=== PATIENT | male | born 1945 | race Caucasian/White ===

== ENCOUNTER 2020-02-23 12:08 | Inpatient (IN) | payer OTHER ==
[~2020-02-23] VITALS: Ht 170.2 cm; Wt 69.0 kg
[2020-02-23] MEDS ORDERED: LISI-662 PO (13:18)
[2020-02-23] MEDS ORDERED: HYDR-1475 PO (13:18)
[2020-02-23 14:18] LABS: BASOPHILS % (AUTO) 0.3 % (0.0-2.0); EOSINOPHILS % (AUTO) 0.3 % (1.0-6.0); HEMATOCRIT 38.8 % (41-53); HEMOGLOBIN 12.9 g/dL (13.5-17.5); LYMPHOCYTES % (AUTO) 8.3 % (22.0-44.0); MEAN CORPUSCULAR HEMOGLOBIN 29.6 pg (26.0-34.0); MEAN CORPUSCULAR HGB CONC 33.3 G/dL (31.0-37.0); MEAN CORPUSCULAR VOLUME 89 fL (80-100); MONOCYTES # (AUTO) 0.9 K/uL (0.1-1.0); MONOCYTES % (AUTO) 7.5 % (2.0-9.0); NEUTROPHILS # (AUTO) 9.9 K/uL (1.8-7.7); NEUTROPHILS % (AUTO) 83.6 % (40.0-70.0); PLATELET COUNT (AUTO) 480 K/uL (150-450); RED BLOOD CELL COUNT(AUTO) 4.38 MIL/uL (4.50-5.90); RED CELL DISTRIBUTION WIDTH 13.4 % (11.5-14.5)
[2020-02-23] MEDS ORDERED: CefTRIAXone 1 GM/DEXTROSE 50 ML IV ONE (14:30)
[2020-02-23] MEDS ORDERED: DEXAMETHASONE SOD PHOS 4 MG/ML VIAL IVP ONE (14:30)
[2020-02-23] MEDS ORDERED: AZITHROMYCIN 500 MG/NS 250 ML IV ONE (14:30)
[2020-02-23 14:32] LABS: CALCIUM, TOTAL 8.3 mg/dL (8.8-10.5); CREATININE 1.34 mg/dL (0.60-1.30); POTASSIUM 3.7 mmol/L (3.5-5.1)
[2020-02-23 14:39] LABS: ALBUMIN 2.2 g/dL (3.4-5.0); BILIRUBIN,TOTAL 1.1 mg/dL (0.1-1.0); TOTAL PROTEIN, SERUM 7.6 g/dL (6.4-8.2)
[2020-02-23 14:41] LABS: D-DIMER 20.77 mg/L FEU (0.00-0.50); INR 1.2 (0.9-1.1); PROTHROMBIN TIME 12.2 SEC (9.4-11.6)
[2020-02-23] MEDS ORDERED: SODIUM CHLORIDE 0.9% 100 ML ONE (15:14)
[2020-02-23] MEDS ORDERED: IOVERSOL 350 MG/ML 100 ML VIAL ONE (15:14)
[2020-02-23 15:15] LABS: COVID AG,FIA SOURCE NASOPHARYNGEAL
[2020-02-23 16:03] LABS: INFLUENZA TYPE A NEGATIVE FOR TYPE A (NEGATIVE); INFLUENZA TYPE B NEGATIVE FOR TYPE B (NEGATIVE)
[2020-02-23] MEDS ORDERED: HEPARIN SODIUM 25000 UNITS/D5W 250 ML IV PRN (17:00)
[2020-02-23] MEDS ORDERED: HEPARIN SODIUM,PORCINE 5,000 UNITS/ML VIAL IVP PRN ×3 (17:00→22:30)
[2020-02-23] MEDS ORDERED: ONDANSETRON HCL 4 MG/2 ML VIAL IVP PRN ×2 (17:15→22:30)
[2020-02-23] MEDS ORDERED: 0.9% SODIUM CHLORIDE 10 ML SYRINGE IVP PRN (17:15)
[2020-02-23] MEDS ORDERED: ACETAMINOPHEN 325 MG TABLET PO PRN (17:15)
[2020-02-23 18:03] LABS: APPEARANCE,URINE CLEAR (CLEAR); BILIRUBIN,URINE NEGATIVE (NEGATIVE); GLUCOSE, URINE (UA) NEGATIVE (NEGATIVE); KETONES,URINE NEGATIVE (NEGATIVE); LEUKOCYTE ESTERASE ,URINE NEGATIVE (NEGATIVE); NITRATE,URINE NEGATIVE (NEGATIVE); OCCULT BLOOD,URINE NEGATIVE (NEGATIVE); PROTEIN,URINE POS 1+ (NEGATIVE)
[2020-02-23] MEDS: HEPARIN SODIUM,PORCINE 5,000 UNITS/ML VIAL IVP PRN ×2 (18:10→18:13)
[2020-02-23 18:14] LABS: BACTERIA,URINE None Seen /HPF (None Seen); RBC,URINE None Seen /HPF (0-2); SQUAMOUS EPITHELIAL CELL,UR Few /LPF (None Seen); WBC,URINE 0-2 /HPF (0-5)
[2020-02-23] MEDS ORDERED: HEPARIN SODIUM,PORCINE 5,000 UNITS/ML VIAL IVP ONE (22:30)
[2020-02-23] MEDS ORDERED: BISACODYL 10 MG RECTAL RECTAL SUPPOSITORY PR PRN (22:30)
[2020-02-23 23:45] LABS: D-DIMER 19.49 mg/L FEU (0.00-0.50); INR 1.2 (0.9-1.1); PROTHROMBIN TIME 12.4 SEC (9.4-11.6)
[2020-02-24] MEDS ORDERED: HEPARIN SODIUM,PORCINE 5,000 UNITS/ML VIAL SQ SCH
[2020-02-24 05:36] LABS: BASOPHILS % (AUTO) 0.2 % (0.0-2.0); EOSINOPHILS % (AUTO) 0.1 % (1.0-6.0); HEMATOCRIT 38.8 % (41-53); HEMOGLOBIN 13.1 g/dL (13.5-17.5); LYMPHOCYTES # (AUTO) 0.9 K/uL (1.0-4.8); LYMPHOCYTES % (AUTO) 10.8 % (22.0-44.0); MEAN CORPUSCULAR HEMOGLOBIN 29.9 pg (26.0-34.0); MEAN CORPUSCULAR HGB CONC 33.9 G/dL (31.0-37.0); MEAN CORPUSCULAR VOLUME 88 fL (80-100); MONOCYTES # (AUTO) 0.5 K/uL (0.1-1.0); MONOCYTES % (AUTO) 5.6 % (2.0-9.0); NEUTROPHILS # (AUTO) 7.1 K/uL (1.8-7.7); NEUTROPHILS % (AUTO) 83.3 % (40.0-70.0); PLATELET COUNT (AUTO) 486 K/uL (150-450); RED CELL DISTRIBUTION WIDTH 13.5 % (11.5-14.5)
[2020-02-24 06:12] LABS: D-DIMER 12.89 mg/L FEU (0.00-0.50)
[2020-02-24 06:33] LABS: ALBUMIN 1.9 g/dL (3.4-5.0); BILIRUBIN,TOTAL 0.6 mg/dL (0.1-1.0); C-REACTIVE PROTEIN QUANT 18.75 mg/dL (0.00-0.30); CREATININE 1.36 mg/dL (0.60-1.30); POTASSIUM 3.7 mmol/L (3.5-5.1); TOTAL PROTEIN, SERUM 7.1 g/dL (6.4-8.2)
[2020-02-24] MEDS: DOCUSATE SODIUM 100 MG CAPSULE PO SCH ×2 (09:00→21:00)
[2020-02-24] MEDS ORDERED: SODIUM CHLORIDE 0.9% 500 ML IV ONE (15:00)
[2020-02-24] MEDS: CefTRIAXone 1 GM/DEXTROSE 50 ML IV SCH (15:12)
[2020-02-24] MEDS: AZITHROMYCIN 500 MG/NS 250 ML IV SCH (16:09)
[2020-02-24 19:00] VITALS: BP 122/64
[2020-02-24 20:51] VITALS: BP 131/75
[2020-02-24] MEDS: HEPARIN SODIUM 25000 UNITS/D5W 250 ML IV PRN (21:14)
[2020-02-25 00:56] VITALS: BP 138/86
[2020-02-25 05:24] VITALS: BP 147/99
[2020-02-25] MEDS: HEPARIN SODIUM 25000 UNITS/D5W 250 ML IV PRN (06:54)
[2020-02-25 06:58] LABS: C-REACTIVE PROTEIN QUANT 9.68 mg/dL (0.00-0.30)
[2020-02-25 07:07] LABS: D-DIMER 6.83 mg/L FEU (0.00-0.50)
[2020-02-25 08:01] VITALS: BP 147/95
[2020-02-25 08:26] LABS: HIV 1-2 SCREEN 4TH GEN W/RFLX Non Reactive (Non Reactive)
[2020-02-25] MEDS: LISINOPRIL 20 MG TABLET PO SCH (08:30)
[2020-02-25] MEDS: DOCUSATE SODIUM 100 MG CAPSULE PO SCH ×2 (08:30→20:48)
[2020-02-25 11:33] VITALS: BP 132/88
[2020-02-25] MEDS: CefTRIAXone 1 GM/DEXTROSE 50 ML IV SCH (15:15)
[2020-02-25 16:13] VITALS: BP 128/82
[2020-02-25] MEDS: AZITHROMYCIN 500 MG/NS 250 ML IV SCH (16:16)
[2020-02-25] MEDS ORDERED: DEXAMETHASONE 4 MG TABLET PO ONE (17:00)
[2020-02-25 20:40] VITALS: BP 143/99
[2020-02-25] MEDS: APIXABAN 5 MG TABLET PO SCH (20:47)
[2020-02-25] MEDS: ZINC SULFATE 220 MG CAPSULE PO SCH (20:48)
[2020-02-25] MEDS: ASCORBIC ACID 500 MG TABLET PO SCH (20:48)
[2020-02-26 01:20] VITALS: BP 153/95
[2020-02-26 04:53] VITALS: BP 134/89
[2020-02-26] MEDS: MAGNESIUM HYDROXIDE SUSPENSION 30 ML UDCUP PO PRN (05:15)
[2020-02-26 07:29] LABS: D-DIMER 6.01 mg/L FEU (0.00-0.50)
[2020-02-26 07:57] LABS: C-REACTIVE PROTEIN QUANT 13.31 mg/dL (0.00-0.30)
[2020-02-26 07:59] VITALS: BP 149/95
[2020-02-26] MEDS: DOCUSATE SODIUM 100 MG CAPSULE PO SCH ×2 (08:57→21:41)
[2020-02-26] MEDS: ASCORBIC ACID 500 MG TABLET PO SCH ×2 (08:57→21:41)
[2020-02-26] MEDS: ZINC SULFATE 220 MG CAPSULE PO SCH ×2 (08:57→21:41)
[2020-02-26] MEDS: DEXAMETHASONE 4 MG TABLET PO SCH (08:57)
[2020-02-26] MEDS: APIXABAN 5 MG TABLET PO SCH ×2 (08:57→21:41)
[2020-02-26] MEDS: LISINOPRIL 20 MG TABLET PO SCH (08:57)
[2020-02-26 11:58] VITALS: BP 132/82
[2020-02-26 14:58] VITALS: BP 136/76
[2020-02-26] MEDS: CefTRIAXone 1 GM/DEXTROSE 50 ML IV SCH (16:08)
[2020-02-26] MEDS: AZITHROMYCIN 500 MG/NS 250 ML IV SCH (17:08)
[2020-02-26] MEDS: ACETAMINOPHEN 325 MG TABLET PO PRN (23:59)
[2020-02-26] MEDS: ZOLPIDEM TARTRATE 5 MG TABLET PO PRN (23:59)
[2020-02-27] VITALS: BP 122/80
[2020-02-27 04:00] VITALS: BP 164/74
[2020-02-27 07:55] VITALS: BP 155/90
[2020-02-27] MEDS: LISINOPRIL 20 MG TABLET PO SCH (08:12)
[2020-02-27] MEDS: DOCUSATE SODIUM 100 MG CAPSULE PO SCH ×2 (08:12→21:00)
[2020-02-27] MEDS: APIXABAN 5 MG TABLET PO SCH ×2 (08:12→21:00)
[2020-02-27] MEDS: ASCORBIC ACID 500 MG TABLET PO SCH ×2 (08:13→21:00)
[2020-02-27] MEDS: ZINC SULFATE 220 MG CAPSULE PO SCH ×2 (08:13→21:00)
[2020-02-27 08:46] LABS: D-DIMER 5.82 mg/L FEU (0.00-0.50)
[2020-02-27 09:20] LABS: C-REACTIVE PROTEIN QUANT 5.94 mg/dL (0.00-0.30)
[2020-02-27] MEDS: DEXAMETHASONE 4 MG TABLET PO SCH (09:56)
[2020-02-27 11:31] VITALS: BP 159/111
[2020-02-27 15:28] VITALS: BP 164/99
[2020-02-27] MEDS ORDERED: SODIUM CHLORIDE 0.9% 100 ML ONE (16:02)
[2020-02-27] MEDS: CefTRIAXone 1 GM/DEXTROSE 50 ML IV SCH (16:12)
[2020-02-27] MEDS: AZITHROMYCIN 500 MG/NS 250 ML IV SCH (16:59)
[2020-02-27] MEDS: TraMADol HCL 50 MG TABLET PO PRN (17:52)
[2020-02-28 00:33] VITALS: BP 165/103
[2020-02-28] MEDS: ZOLPIDEM TARTRATE 5 MG TABLET PO PRN (00:36)
[2020-02-28 05:43] VITALS: BP 164/119
[2020-02-28 05:52] LABS: ORGANISM ID Not indicated.; S PNEUMO SOURCE Urine; STREP PNEUMONIAE AG URINE Negative (Negative); STREP.PNEUMO BODY FLUID CULT. Not indicated.
[2020-02-28 06:37] LABS: BASOPHILS % (AUTO) 0.1 % (0.0-2.0); EOSINOPHILS % (AUTO) 1.1 % (1.0-6.0); HEMATOCRIT 38.3 % (41-53); HEMOGLOBIN 12.4 g/dL (13.5-17.5); LYMPHOCYTES # (AUTO) 1.8 K/uL (1.0-4.8); MEAN CORPUSCULAR HGB CONC 32.5 G/dL (31.0-37.0); MEAN CORPUSCULAR VOLUME 89 fL (80-100); MONOCYTES # (AUTO) 1.4 K/uL (0.1-1.0); MONOCYTES % (AUTO) 9.4 % (2.0-9.0); NEUTROPHILS # (AUTO) 11.3 K/uL (1.8-7.7); NEUTROPHILS % (AUTO) 77.4 % (40.0-70.0); PLATELET COUNT (AUTO) 649 K/uL (150-450); RED BLOOD CELL COUNT(AUTO) 4.29 MIL/uL (4.50-5.90); RED CELL DISTRIBUTION WIDTH 13.5 % (11.5-14.5)
[2020-02-28 07:12] LABS: ALBUMIN 2.3 g/dL (3.4-5.0); BILIRUBIN,TOTAL 0.5 mg/dL (0.1-1.0); CALCIUM, TOTAL 7.3 mg/dL (8.8-10.5); CREATININE 1.33 mg/dL (0.60-1.30); POTASSIUM 3.7 mmol/L (3.5-5.1); TOTAL PROTEIN, SERUM 6.9 g/dL (6.4-8.2)
[2020-02-28 08:11] VITALS: BP 152/99
[2020-02-28] MEDS: ZINC SULFATE 220 MG CAPSULE PO SCH ×2 (09:00→22:13)
[2020-02-28] MEDS: APIXABAN 5 MG TABLET PO SCH ×2 (09:00→22:12)
[2020-02-28] MEDS: LISINOPRIL 20 MG TABLET PO SCH (09:00)
[2020-02-28] MEDS: DOCUSATE SODIUM 100 MG CAPSULE PO SCH ×2 (09:00→22:12)
[2020-02-28] MEDS: ASCORBIC ACID 500 MG TABLET PO SCH ×2 (09:00→22:12)
[2020-02-28] MEDS: DEXAMETHASONE 4 MG TABLET PO SCH (09:00)
[2020-02-28 12:26] VITALS: BP 154/90
[2020-02-28] MEDS ORDERED: METOPROLOL TARTRATE 25 MG TABLET PO ONE (12:45)
[2020-02-28] MEDS ORDERED: SODIUM CHLORIDE 0.9% 1,000 ML ONE (16:30)
[2020-02-28] MEDS: CefTRIAXone 1 GM/DEXTROSE 50 ML IV SCH (16:55)
[2020-02-28] MEDS: AZITHROMYCIN 500 MG/NS 250 ML IV SCH (17:59)
[2020-02-28 20:28] VITALS: BP 141/85
[2020-02-28] MEDS: METOPROLOL TARTRATE 25 MG TABLET PO SCH (22:12)
[2020-02-28 23:51] VITALS: BP 149/111
[2020-02-29] MEDS ORDERED: LORazepam 2 MG/ML VIAL IM ONE (00:15)
[2020-02-29 08:36] VITALS: BP 149/90
[2020-02-29] MEDS: ZINC SULFATE 220 MG CAPSULE PO SCH ×2 (10:20→20:55)
[2020-02-29] MEDS: APIXABAN 5 MG TABLET PO SCH ×2 (10:20→20:55)
[2020-02-29] MEDS: ASCORBIC ACID 500 MG TABLET PO SCH ×2 (10:20→20:55)
[2020-02-29] MEDS: DEXAMETHASONE 4 MG TABLET PO SCH (10:20)
[2020-02-29] MEDS: METOPROLOL TARTRATE 25 MG TABLET PO SCH ×2 (10:20→20:55)
[2020-02-29] MEDS: LISINOPRIL 20 MG TABLET PO SCH (10:20)
[2020-02-29] MEDS: DOCUSATE SODIUM 100 MG CAPSULE PO SCH ×2 (10:21→20:55)
[2020-02-29 12:37] LABS: BASOPHILS % (AUTO) 0.5 % (0.0-2.0); EOSINOPHILS % (AUTO) 0.5 % (1.0-6.0); HEMATOCRIT 37.5 % (41-53); HEMOGLOBIN 11.9 g/dL (13.5-17.5); LYMPHOCYTES # (AUTO) 2.3 K/uL (1.0-4.8); LYMPHOCYTES % (AUTO) 15.5 % (22.0-44.0); MEAN CORPUSCULAR HEMOGLOBIN 28.8 pg (26.0-34.0); MEAN CORPUSCULAR HGB CONC 31.8 G/dL (31.0-37.0); MEAN CORPUSCULAR VOLUME 90 fL (80-100); MONOCYTES # (AUTO) 1.4 K/uL (0.1-1.0); MONOCYTES % (AUTO) 9.5 % (2.0-9.0); NEUTROPHILS # (AUTO) 11.2 K/uL (1.8-7.7); PLATELET COUNT (AUTO) 644 K/uL (150-450); RED BLOOD CELL COUNT(AUTO) 4.15 MIL/uL (4.50-5.90)
[2020-02-29 12:43] LABS: CREATININE 1.27 mg/dL (0.60-1.30); POTASSIUM 4.2 mmol/L (3.5-5.1)
[2020-02-29 12:45] LABS: LEGIONELLA PNEUMO AG URINE Negative (Negative)
[2020-02-29 12:49] LABS: ALBUMIN 2.1 g/dL (3.4-5.0); BILIRUBIN,TOTAL 0.4 mg/dL (0.1-1.0); TOTAL PROTEIN, SERUM 6.3 g/dL (6.4-8.2)
[2020-02-29] MEDS: AZITHROMYCIN 500 MG TABLET PO SCH (14:35)
[2020-02-29] MEDS: LIDOCAINE/PF 1% 2 ML VIAL IM SCH (14:35)
[2020-02-29] MEDS: CefTRIAXone SODIUM 1 GM/VIAL IM SCH (14:35)
[2020-02-29 19:29] VITALS: BP 147/91
[2020-02-29] MEDS: ZOLPIDEM TARTRATE 5 MG TABLET PO PRN (20:57)
[2020-03-01 05:14] VITALS: BP 174/97
[2020-03-01] MEDS: APIXABAN 5 MG TABLET PO SCH ×3 (08:51→22:27)
[2020-03-01] MEDS: AZITHROMYCIN 500 MG TABLET PO SCH ×2 (08:51→09:00)
[2020-03-01] MEDS: DEXAMETHASONE 4 MG TABLET PO SCH ×2 (08:52→09:00)
[2020-03-01] MEDS: DOCUSATE SODIUM 100 MG CAPSULE PO SCH ×2 (08:52→22:27)
[2020-03-01] MEDS: ZINC SULFATE 220 MG CAPSULE PO SCH ×3 (08:52→22:28)
[2020-03-01] MEDS: TraMADol HCL 50 MG TABLET PO PRN (08:52)
[2020-03-01] MEDS: METOPROLOL TARTRATE 25 MG TABLET PO SCH ×3 (08:53→22:28)
[2020-03-01] MEDS: LISINOPRIL 20 MG TABLET PO SCH ×2 (08:53→09:00)
[2020-03-01] MEDS: ASCORBIC ACID 500 MG TABLET PO SCH ×3 (08:53→22:28)
[2020-03-01] MEDS: CefTRIAXone SODIUM 1 GM/VIAL IM SCH (09:00)
[2020-03-01] MEDS: LIDOCAINE/PF 1% 2 ML VIAL IM SCH (09:00)
[2020-03-01] MEDS: ZOLPIDEM TARTRATE 5 MG TABLET PO PRN (22:28)
[2020-03-01 23:13] VITALS: BP 145/106
[2020-03-02 04:10] VITALS: BP 144/99
[2020-03-02 07:53] VITALS: BP 129/83
[2020-03-02] MEDS: LISINOPRIL 20 MG TABLET PO SCH (09:00)
[2020-03-02] MEDS: CefTRIAXone SODIUM 1 GM/VIAL IM SCH (09:00)
[2020-03-02] MEDS: ASCORBIC ACID 500 MG TABLET PO SCH ×2 (09:00→20:28)
[2020-03-02] MEDS: AZITHROMYCIN 500 MG TABLET PO SCH (09:00)
[2020-03-02] MEDS: METOPROLOL TARTRATE 25 MG TABLET PO SCH ×2 (09:00→20:28)
[2020-03-02] MEDS: ZINC SULFATE 220 MG CAPSULE PO SCH ×2 (09:00→20:29)
[2020-03-02] MEDS: DOCUSATE SODIUM 100 MG CAPSULE PO SCH ×2 (09:00→20:27)
[2020-03-02] MEDS: APIXABAN 5 MG TABLET PO SCH ×2 (09:00→20:28)
[2020-03-02] MEDS: DEXAMETHASONE 4 MG TABLET PO SCH (09:00)
[2020-03-02] MEDS: LIDOCAINE/PF 1% 2 ML VIAL IM SCH (09:00)
[2020-03-02 20:33] VITALS: BP 155/96
[2020-03-03 08:18] VITALS: BP 148/86
[2020-03-03] MEDS: LIDOCAINE/PF 1% 2 ML VIAL IM SCH (09:00)
[2020-03-03] MEDS: DEXAMETHASONE 4 MG TABLET PO SCH (09:00)
[2020-03-03] MEDS: LISINOPRIL 20 MG TABLET PO SCH (09:00)
[2020-03-03] MEDS: APIXABAN 5 MG TABLET PO SCH (09:00)
[2020-03-03] MEDS: AZITHROMYCIN 500 MG TABLET PO SCH (09:00)
[2020-03-03] MEDS: DOCUSATE SODIUM 100 MG CAPSULE PO SCH (09:00)
[2020-03-03] MEDS: ASCORBIC ACID 500 MG TABLET PO SCH (09:00)
[2020-03-03] MEDS: CefTRIAXone SODIUM 1 GM/VIAL IM SCH (09:00)
[2020-03-03] MEDS: METOPROLOL TARTRATE 25 MG TABLET PO SCH (09:00)
[2020-03-03] MEDS: ZINC SULFATE 220 MG CAPSULE PO SCH (09:00)
[2020-03-03 10:29] LABS: BASOPHILS % (AUTO) 0.2 % (0.0-2.0); EOSINOPHILS % (AUTO) 2.5 % (1.0-6.0); HEMOGLOBIN 14.4 g/dL (13.5-17.5); LYMPHOCYTES % (AUTO) 21.1 % (22.0-44.0); MEAN CORPUSCULAR VOLUME 91 fL (80-100); MONOCYTES # (AUTO) 1.3 K/uL (0.1-1.0); MONOCYTES % (AUTO) 8.8 % (2.0-9.0); NEUTROPHILS # (AUTO) 9.6 K/uL (1.8-7.7); NEUTROPHILS % (AUTO) 67.4 % (40.0-70.0); PLATELET COUNT (AUTO) 680 K/uL (150-450); RED BLOOD CELL COUNT(AUTO) 4.96 MIL/uL (4.50-5.90); RED CELL DISTRIBUTION WIDTH 13.8 % (11.5-14.5)
[2020-03-03 10:57] LABS: ALBUMIN 2.7 g/dL (3.4-5.0); BILIRUBIN,TOTAL 0.6 mg/dL (0.1-1.0); CALCIUM, TOTAL 8.3 mg/dL (8.8-10.5); CREATININE 1.41 mg/dL (0.60-1.30); POTASSIUM 5.1 mmol/L (3.5-5.1)
[2020-03-03 23:47] VITALS: BP 157/96
[2020-03-04 06:45] LABS: BASOPHILS % (AUTO) 1.3 % (0.0-2.0); EOSINOPHILS % (AUTO) 1.9 % (1.0-6.0); HEMATOCRIT 41.5 % (41-53); HEMOGLOBIN 13.9 g/dL (13.5-17.5); LYMPHOCYTES # (AUTO) 2.7 K/uL (1.0-4.8); LYMPHOCYTES % (AUTO) 20.1 % (22.0-44.0); MEAN CORPUSCULAR HEMOGLOBIN 29.9 pg (26.0-34.0); MEAN CORPUSCULAR HGB CONC 33.4 G/dL (31.0-37.0); MEAN CORPUSCULAR VOLUME 89 fL (80-100); MONOCYTES # (AUTO) 1.1 K/uL (0.1-1.0); MONOCYTES % (AUTO) 8.5 % (2.0-9.0); NEUTROPHILS % (AUTO) 68.2 % (40.0-70.0); PLATELET COUNT (AUTO) 597 K/uL (150-450); RED BLOOD CELL COUNT(AUTO) 4.64 MIL/uL (4.50-5.90); RED CELL DISTRIBUTION WIDTH 13.9 % (11.5-14.5)
[2020-03-04 07:24] LABS: ALBUMIN 2.6 g/dL (3.4-5.0); BILIRUBIN,TOTAL 0.6 mg/dL (0.1-1.0); CALCIUM, TOTAL 7.9 mg/dL (8.8-10.5); CREATININE 1.24 mg/dL (0.60-1.30); POTASSIUM 4.3 mmol/L (3.5-5.1); TOTAL PROTEIN, SERUM 6.7 g/dL (6.4-8.2)
[2020-03-04 07:56] VITALS: BP 149/92
[2020-03-04] MEDS: ASCORBIC ACID 500 MG TABLET PO SCH ×2 (08:59→21:11)
[2020-03-04] MEDS: DOCUSATE SODIUM 100 MG CAPSULE PO SCH ×2 (08:59→21:11)
[2020-03-04] MEDS: METOPROLOL TARTRATE 25 MG TABLET PO SCH ×2 (08:59→21:11)
[2020-03-04] MEDS: AZITHROMYCIN 500 MG TABLET PO SCH (09:00)
[2020-03-04] MEDS: APIXABAN 5 MG TABLET PO SCH ×2 (09:00→21:11)
[2020-03-04] MEDS: DEXAMETHASONE 4 MG TABLET PO SCH (09:00)
[2020-03-04] MEDS: CefTRIAXone SODIUM 1 GM/VIAL IM SCH (09:00)
[2020-03-04] MEDS: ZINC SULFATE 220 MG CAPSULE PO SCH ×2 (09:00→21:24)
[2020-03-04] MEDS: LIDOCAINE/PF 1% 2 ML VIAL IM SCH (09:00)
[2020-03-04] MEDS: LISINOPRIL 20 MG TABLET PO SCH (09:00)
[2020-03-04 20:00] VITALS: BP 135/71
[2020-03-04] MEDS: MAGNESIUM HYDROXIDE SUSPENSION 30 ML UDCUP PO PRN (21:24)
[2020-03-05 08:29] VITALS: BP 142/93
[2020-03-05] MEDS: APIXABAN 5 MG TABLET PO SCH ×2 (08:51→20:54)
[2020-03-05] MEDS: LISINOPRIL 20 MG TABLET PO SCH (08:51)
[2020-03-05] MEDS: ASCORBIC ACID 500 MG TABLET PO SCH ×2 (08:51→20:54)
[2020-03-05] MEDS: AZITHROMYCIN 500 MG TABLET PO SCH (08:51)
[2020-03-05] MEDS: DOCUSATE SODIUM 100 MG CAPSULE PO SCH ×2 (08:51→20:54)
[2020-03-05] MEDS: ZINC SULFATE 220 MG CAPSULE PO SCH ×2 (08:51→20:54)
[2020-03-05] MEDS: DEXAMETHASONE 4 MG TABLET PO SCH (08:52)
[2020-03-05] MEDS: METOPROLOL TARTRATE 25 MG TABLET PO SCH ×2 (08:53→20:54)
[2020-03-05] MEDS: LIDOCAINE/PF 1% 2 ML VIAL IM SCH (09:00)
[2020-03-05] MEDS: CefTRIAXone SODIUM 1 GM/VIAL IM SCH (09:00)
[2020-03-05 20:30] VITALS: BP 122/77
[2020-03-06] MEDS: CALCIUM CARBONATE 500 MG CHEWABLE TABLET CHEW PRN (01:58)
[2020-03-06] MEDS: METOPROLOL TARTRATE 25 MG TABLET PO SCH ×2 (08:49→21:00)
[2020-03-06] MEDS: DOCUSATE SODIUM 100 MG CAPSULE PO SCH ×4 (08:49→21:00)
[2020-03-06] MEDS: APIXABAN 5 MG TABLET PO SCH ×3 (08:49→21:00)
[2020-03-06] MEDS: DEXAMETHASONE 4 MG TABLET PO SCH (08:49)
[2020-03-06] MEDS: ASCORBIC ACID 500 MG TABLET PO SCH ×3 (08:49→21:00)
[2020-03-06] MEDS: ZINC SULFATE 220 MG CAPSULE PO SCH ×3 (08:49→21:00)
[2020-03-06] MEDS: AZITHROMYCIN 500 MG TABLET PO SCH ×2 (08:49→09:00)
[2020-03-06] MEDS: LISINOPRIL 20 MG TABLET PO SCH ×2 (08:49→09:00)
[2020-03-06] MEDS: LIDOCAINE/PF 1% 2 ML VIAL IM SCH (08:50)
[2020-03-06] MEDS: CefTRIAXone SODIUM 1 GM/VIAL IM SCH (08:50)
[2020-03-06 20:23] VITALS: BP 108/82
[2020-03-07 05:16] VITALS: BP 122/72
[2020-03-07 07:25] LABS: BASOPHILS % (AUTO) 0.3 % (0.0-2.0); EOSINOPHILS % (AUTO) 0.4 % (1.0-6.0); HEMATOCRIT 43.9 % (41-53); HEMOGLOBIN 14.5 g/dL (13.5-17.5); LYMPHOCYTES # (AUTO) 3.1 K/uL (1.0-4.8); LYMPHOCYTES % (AUTO) 21.1 % (22.0-44.0); MEAN CORPUSCULAR HEMOGLOBIN 29.9 pg (26.0-34.0); MEAN CORPUSCULAR HGB CONC 33.1 G/dL (31.0-37.0); MEAN CORPUSCULAR VOLUME 90 fL (80-100); MONOCYTES # (AUTO) 1.2 K/uL (0.1-1.0); MONOCYTES % (AUTO) 8.1 % (2.0-9.0); NEUTROPHILS # (AUTO) 10.2 K/uL (1.8-7.7); NEUTROPHILS % (AUTO) 70.1 % (40.0-70.0); PLATELET COUNT (AUTO) 598 K/uL (150-450); RED BLOOD CELL COUNT(AUTO) 4.85 MIL/uL (4.50-5.90); RED CELL DISTRIBUTION WIDTH 14.2 % (11.5-14.5)
[2020-03-07 07:55] LABS: ALBUMIN 2.8 g/dL (3.4-5.0); BILIRUBIN,TOTAL 0.5 mg/dL (0.1-1.0); CALCIUM, TOTAL 8.4 mg/dL (8.8-10.5); CREATININE 1.46 mg/dL (0.60-1.30); POTASSIUM 4.5 mmol/L (3.5-5.1); TOTAL PROTEIN, SERUM 6.8 g/dL (6.4-8.2)
[2020-03-07 08:28] VITALS: BP 108/74
[2020-03-07] MEDS: AZITHROMYCIN 500 MG TABLET PO SCH (10:26)
[2020-03-07] MEDS: ASCORBIC ACID 500 MG TABLET PO SCH ×2 (10:27→20:18)
[2020-03-07] MEDS: DEXAMETHASONE 4 MG TABLET PO SCH (10:27)
[2020-03-07] MEDS: ZINC SULFATE 220 MG CAPSULE PO SCH ×2 (10:27→20:18)
[2020-03-07] MEDS: LISINOPRIL 20 MG TABLET PO SCH (10:27)
[2020-03-07] MEDS: APIXABAN 5 MG TABLET PO SCH ×2 (10:27→20:18)
[2020-03-07] MEDS: METOPROLOL TARTRATE 25 MG TABLET PO SCH ×2 (10:27→20:18)
[2020-03-07] MEDS: DOCUSATE SODIUM 100 MG CAPSULE PO SCH ×2 (10:27→20:18)
[2020-03-07] MEDS: LIDOCAINE/PF 1% 2 ML VIAL IM SCH (10:28)
[2020-03-07] MEDS: CefTRIAXone SODIUM 1 GM/VIAL IM SCH ×2 (10:28→10:55)
[2020-03-07 19:25] VITALS: BP 103/71
[2020-03-07] MEDS: CALCIUM CARBONATE 500 MG CHEWABLE TABLET CHEW PRN (22:09)
[2020-03-08 04:50] VITALS: BP 109/65
[2020-03-08 08:07] VITALS: BP 100/65
[2020-03-08] MEDS: APIXABAN 5 MG TABLET PO SCH ×2 (08:10→20:54)
[2020-03-08] MEDS: AZITHROMYCIN 500 MG TABLET PO SCH (08:10)
[2020-03-08] MEDS: ASCORBIC ACID 500 MG TABLET PO SCH ×2 (08:10→20:54)
[2020-03-08] MEDS: ZINC SULFATE 220 MG CAPSULE PO SCH ×2 (08:10→20:54)
[2020-03-08] MEDS: DEXAMETHASONE 4 MG TABLET PO SCH (08:10)
[2020-03-08] MEDS: DOCUSATE SODIUM 100 MG CAPSULE PO SCH ×2 (08:11→20:54)
[2020-03-08] MEDS: METOPROLOL TARTRATE 25 MG TABLET PO SCH ×2 (09:00→20:55)
[2020-03-08] MEDS: LISINOPRIL 20 MG TABLET PO SCH (09:00)
[2020-03-08] MEDS: LIDOCAINE/PF 1% 2 ML VIAL IM SCH (11:14)
[2020-03-08] MEDS: CefTRIAXone SODIUM 1 GM/VIAL IM SCH (11:14)
[2020-03-08] MEDS: TraMADol HCL 50 MG TABLET PO PRN (11:15)
[2020-03-08 21:20] VITALS: BP 145/70
[2020-03-09 05:57] VITALS: BP 108/62
[2020-03-09 08:20] VITALS: BP 123/79
[2020-03-09] MEDS: LIDOCAINE/PF 1% 2 ML VIAL IM SCH (08:57)
[2020-03-09] MEDS: CefTRIAXone SODIUM 1 GM/VIAL IM SCH (08:58)
[2020-03-09] MEDS: AZITHROMYCIN 500 MG TABLET PO SCH (08:58)
[2020-03-09] MEDS: ZINC SULFATE 220 MG CAPSULE PO SCH ×2 (08:58→20:41)
[2020-03-09] MEDS: DOCUSATE SODIUM 100 MG CAPSULE PO SCH ×2 (08:58→20:41)
[2020-03-09] MEDS: APIXABAN 5 MG TABLET PO SCH ×2 (08:59→20:41)
[2020-03-09] MEDS: DEXAMETHASONE 4 MG TABLET PO SCH (08:59)
[2020-03-09] MEDS: ASCORBIC ACID 500 MG TABLET PO SCH ×2 (08:59→20:41)
[2020-03-09] MEDS: LISINOPRIL 20 MG TABLET PO SCH (09:00)
[2020-03-09] MEDS: METOPROLOL TARTRATE 25 MG TABLET PO SCH ×2 (09:00→20:41)
[2020-03-09] MEDS: TraMADol HCL 50 MG TABLET PO PRN (20:41)
[2020-03-09 21:08] VITALS: BP 126/70
[2020-03-10 05:00] VITALS: BP 102/68
[2020-03-10] MEDS: CefTRIAXone SODIUM 1 GM/VIAL IM SCH (08:14)
[2020-03-10] MEDS: LIDOCAINE/PF 1% 2 ML VIAL IM SCH (08:14)
[2020-03-10] MEDS: APIXABAN 5 MG TABLET PO SCH ×2 (08:15→19:51)
[2020-03-10] MEDS: AZITHROMYCIN 500 MG TABLET PO SCH (08:16)
[2020-03-10] MEDS: DOCUSATE SODIUM 100 MG CAPSULE PO SCH ×2 (08:17→19:51)
[2020-03-10] MEDS: LISINOPRIL 20 MG TABLET PO SCH (08:17)
[2020-03-10] MEDS: ASCORBIC ACID 500 MG TABLET PO SCH ×2 (08:17→19:52)
[2020-03-10] MEDS: DEXAMETHASONE 4 MG TABLET PO SCH (08:17)
[2020-03-10] MEDS: ZINC SULFATE 220 MG CAPSULE PO SCH ×2 (08:17→19:52)
[2020-03-10] MEDS: METOPROLOL TARTRATE 25 MG TABLET PO SCH ×2 (08:18→20:02)
[2020-03-10 08:25] VITALS: BP 113/68
[2020-03-10] MEDS: ACETAMINOPHEN 325 MG TABLET PO PRN (19:52)
[2020-03-10] MEDS: CALCIUM CARBONATE 500 MG CHEWABLE TABLET CHEW PRN (19:52)
[2020-03-10 20:03] VITALS: BP 104/64
[2020-03-11 03:28] VITALS: BP 120/71
[2020-03-11 07:30] VITALS: BP 120/74
[2020-03-11] MEDS: METOPROLOL TARTRATE 25 MG TABLET PO SCH ×2 (09:00→20:59)
[2020-03-11] MEDS: AZITHROMYCIN 500 MG TABLET PO SCH (09:30)
[2020-03-11] MEDS: LIDOCAINE/PF 1% 2 ML VIAL IM SCH (09:31)
[2020-03-11] MEDS: ASCORBIC ACID 500 MG TABLET PO SCH ×2 (09:31→20:59)
[2020-03-11] MEDS: DEXAMETHASONE 4 MG TABLET PO SCH (09:31)
[2020-03-11] MEDS: DOCUSATE SODIUM 100 MG CAPSULE PO SCH ×2 (09:31→20:59)
[2020-03-11] MEDS: LISINOPRIL 20 MG TABLET PO SCH (09:32)
[2020-03-11] MEDS: APIXABAN 5 MG TABLET PO SCH ×2 (09:32→20:59)
[2020-03-11] MEDS: CefTRIAXone SODIUM 1 GM/VIAL IM SCH (09:33)
[2020-03-11] MEDS: ZINC SULFATE 220 MG CAPSULE PO SCH ×2 (09:35→20:59)
[2020-03-11] MEDS: CALCIUM CARBONATE 500 MG CHEWABLE TABLET CHEW PRN (15:54)
[2020-03-11 20:40] VITALS: BP 118/58
[2020-03-11] MEDS: TraMADol HCL 50 MG TABLET PO PRN (20:59)
[2020-03-12 00:04] LABS: QUANTIFERON, TB GOLD PLUS Positive (Negative)
[2020-03-12 04:02] VITALS: BP 105/62
[2020-03-12 08:16] VITALS: BP 119/72
[2020-03-12] MEDS: APIXABAN 5 MG TABLET PO SCH ×2 (09:00→09:21)
[2020-03-12] MEDS: ASCORBIC ACID 500 MG TABLET PO SCH ×2 (09:00→09:22)
[2020-03-12] MEDS: ZINC SULFATE 220 MG CAPSULE PO SCH ×2 (09:00→09:22)
[2020-03-12] MEDS: DOCUSATE SODIUM 100 MG CAPSULE PO SCH ×2 (09:00→09:22)
[2020-03-12] MEDS: LISINOPRIL 20 MG TABLET PO SCH ×2 (09:00→09:22)
[2020-03-12] MEDS: LIDOCAINE/PF 1% 2 ML VIAL IM SCH ×2 (09:00→09:23)
[2020-03-12] MEDS: METOPROLOL TARTRATE 25 MG TABLET PO SCH ×2 (09:00→09:22)
[2020-03-12] MEDS: MULTIVITAMINS WITH MINERALS, THERAPEUTIC TABLET PO SCH ×2 (09:00→09:22)
[2020-03-12] MEDS: DEXAMETHASONE 4 MG TABLET PO SCH ×2 (09:00→09:21)
[2020-03-12] MEDS: AZITHROMYCIN 500 MG TABLET PO SCH ×2 (09:00→09:21)
[2020-03-12] MEDS: CefTRIAXone SODIUM 1 GM/VIAL IM SCH ×2 (09:00→09:23)
[2020-03-12] MEDS ORDERED: METO25 PO (11:49)
[2020-03-12] MEDS ORDERED: APIX5TAB PO (11:49)
== END 2020-03-12 16:30 | DRG 177 ==
LOC: EMS 12:25 → 5N 22:25 → 6S 02-28 15:45 → 6N 02-28 15:55 → 6S 02-28 18:14
PROVIDERS: ADMIT Hospitalist; ATTEND Hospitalist
DX: U07.1 COVID-19 (principal); I26.99 Other pulmonary embolism without acute cor pulmonale; E43 Unspecified severe protein-calorie malnutrition; J12.82 Pneumonia due to coronavirus disease 2019; N17.9 Acute kidney failure, unspecified; J98.11 Atelectasis; E86.0 Dehydration; I10 Essential (primary) hypertension; R09.02 Hypoxemia; Z68.23 Body mass index [BMI] 23.0-23.9, adult; Z91.19 Patient's noncompliance with other medical treatment and regimen; Z79.01 Long term (current) use of anticoagulants; F41.9 Anxiety disorder, unspecified; Z79.899 Other long term (current) drug therapy; F17.210 Nicotine dependence, cigarettes, uncomplicated
CPT/HCPCS: 71275; 82728; 83615; 84145; 85379; 86140; 86480; 87015; 87206; 87389; 87426; 87449; 87556; 87798; 87804; 87899; 93005; 99291; J0456; J0696; J1100; J1644; J2060; J2405; J3490; J7030; J7040; J7050; J8540; 36415-L1; 36415-TC; 71045-TC; U0003